=== PATIENT | male | born 1975 | race Caucasian/White ===

== ENCOUNTER 2018-02-05 08:34 | Day surgery (SDC) | payer MEDICAID, SELFPAY ==
--- NOTE | 2018-02-05 | IMM_PTH ---
PATIENT: DEMAR CUEVAS LOC: EN U#:[id number] AGE/SX: 42/M ROOM: RE02/05/[address]: Dr. Noble Burnette MD : 1975 BED: DIS: 02/05/2018 SPEC #: [id number] RECD: 02/06/18 10:33 STATUS: ALMAZ SOLE #: [id number] RADHA: 02/05/18 00:[address]: Noble Burnette DEPT: IMMUNOHISTOCHEMISTRY RECD BY: Pau Mckeon Tissues: B - Stomach, NOS Procedures: H Pylori (initial) PHYSICIAN & INSTITUTION [place] [id number] SPECIMEN INFORMATION: Tissue Source: B ? Antral biopsy Clinical Info: GERD, blood in stool Specimen Number: [id number] CPT code: 02235 METHODOLOGY: Deparaffinized sections of prefer/formalin-fixed tissue or PAP/DQ stained slides are incubated with monoclonal/polyclonal antibodies/oligonucleotide probes. Localization is made via biotin free immunoperoxidase method. Appropriate controls are performed and reacted as expected. Results on target cell population are indicated in the following table: RESULTS: ANTIBODY / CLONE RESULT Block B H Pylori (polyclonal) negative These tests were developed and their performance characteristics determined by [facility]. They may not have been cleared or approved by the [place]. Food and Drug Administration. The FDA has determined that such clearance or approval is not necessary. INTERPRETATION: B. Antral biopsy: Negative for Helicobacter pylori organisms. AM:lázaro 02/06/18
[2018-02-05 08:51] VITALS: BP 152/95; PULSE 92; RESP 14; TEMP 36.1; O2SAT 98; BMI 32.1
--- NOTE | 2018-02-05 10:31 | EGD_PTH ---
PATIENT: DEMAR CUEVAS LOC: EN U#:[id number] AGE/SX: 42/M ROOM: RE02/05/[address]: Dr. Noble Burnette MD : 1975 BED: DIS: 02/05/2018 SPEC #: [id number] RECD: 02/05/18 11:01 STATUS: ALMAZ SOLE #: [id number] RADHA: 02/05/18 10:[address]: Noble Burnette DEPT: SURGICAL PATHOLOGY RECD BY: Akhil Aguilar Tissues: A - Duodenum, NOS B - Gastric mucous membrane C - COLON BIOPSY Procedures: Trichrome (control) Special Stain Group II Surgery Specimen Level IV HEADER OPERATION: EGD and colonoscopy PRE-OP DIAGNOSIS: GERD and blood in stool TISSUE SUBMITTED: A ? Duodenal biopsy, B ? Antral biopsy for H. pylori and path, C ? Random colon biopsies MICROSCOPIC DIAGNOSIS A. Duodenum, biopsy: No pathologic diagnosis. B. Gastric antrum, biopsy: Mild chronic gastritis. C. Colon, random biopsy: Focal recent mucosal hemorrhage. No evidence of colitis. AM:lázaro 02/06/18 COMMENT B. The results of immunohistochemistry for Helicobacter pylori will be reported separately ([id number]). C. Trichrome stain with matched control does not reveal a thickened basal plate. Clinical correlation is suggested. MICROSCOPIC DESCRIPTION Slides are reviewed. GROSS DESCRIPTION A - Received in fixative is one container labeled with the patient's name and designated duodenal biopsy. The specimen consists of multiple irregular fragments of light gutierrez soft tissue that in aggregate measure 0.5 x 0.2 x 0.1 cm. The specimen is totally submitted in one cassette. B - Received in fixative is one container labeled with the patient's name and designated antral biopsy. The specimen consists of two irregular fragments of light gutierrez soft tissue that in aggregate measure 1 x 0.2 x 0.1 cm. The specimen is totally submitted in one cassette. C - Received in fixative is one container labeled with the patient's name and designated random colon biopsy. The specimen consists of multiple irregular fragments of light gutierrez soft tissue that in aggregate measure 1 x 0.5 x 0.1 cm. The specimen is totally submitted in one cassette. / ROBBY:lázaro 02/05/18 TC:5 CPT: 82069 x3, 53447
--- NOTE | 2018-02-05 10:49 | PCM.OPRPT ---
Problem List (1) Dysphagia, unspecified Status: Acute Qualifiers: Dysphagia type: unspecified Qualified Code(s): R13.10 - Dysphagia, unspecified (2) Epigastric pain Status: Acute (3) Blood per rectum Status: Acute Report of Operation Date of Procedure: 02/05/18 Pre-Operative Diagnosis: r13.10 dysphasia unspecified. r10.13 epigastric abdominal pain. k62.5 rectal bleeding Post-Operative Diagnosis: Same Surgery/Procedure Performed:: 1. Esophagogastroduodenoscopy with biopsy. 2. Colonoscopy with random colon biopsies Type of Anesthesia:: MAC Anesthesiologist: Gilels Cota Description of Procedure: Patient was brought into the endoscopy suite back of his throat was sprayed with Cetacaine spray. A bite-block was placed. He was placed in the left lateral decubitus position. He was given graded anesthesia. The scope was inserted into the back of the oropharynx and directed down through the esophagus, stomach, and into the duodenum. Operative findings: 1. Duodenum: Normal appearance no mass lesions some slight erythema in the duodenal bulb but very minimal at best biopsy for celiac sprue was obtained. 2. Stomach: normal appearance no mass lesions no ulcerations biopsy for H. pylori was obtained. There was the appearance of the there was some significant gastritis and cobblestoning minimally throughout the stomach majority of it based in the prepyloric area. #3 esophagus: Normal appearance no mass lesions no signs of esophagitis Z line was at 40 cm and it looked good. Colonoscope was inserted into the rectum and directed through the sigmoid colon, descending colon, transverse colon, ascending colon, to the cecum. Operative findings: 1. Cecum: Normal appearance no mass lesions normal ileocecal valve. 2. Ascending colon: Normal appearance no mass lesions. 3. Transverse colon: Normal appearance no mass lesions. 4. Descending colon: Normal appearance no mass lesions. 5. Sigmoid colon: Normal appearance no mass lesions. The area of the sigmoid colon did not distend as normally as the rest of the colon. There was absolutely no diverticular disease identified. 6. Rectum: Few internal hemorrhoids no mass lesions Random colon biopsies were done from the cecum all the way to the rectum. The scope was withdrawn and digital rectal exam was performed showing a smooth prostate and no masses within the anus. I will see the patient back in 1 week to discuss pathology reports
[2018-02-05 10:52] VITALS: BP 146/94; BP 152/95; PULSE 88; RESP 16; TEMP 36.1; O2SAT 95
--- NOTE | 2018-02-05 10:52 | OP.PCM_ITS ---
Problem List (1) Dysphagia, unspecified Status: Acute Qualifiers: Dysphagia type: unspecified Qualified Code(s): R13.10 - Dysphagia, unspecified (2) Epigastric pain Status: Acute (3) Blood per rectum Status: Acute Report of Operation Date of Procedure: 02/05/18 Pre-Operative Diagnosis: r13.10 dysphasia unspecified. r10.13 epigastric abdominal pain. k62.5 rectal bleeding Post-Operative Diagnosis: Same Surgery/Procedure Performed:: 1. Esophagogastroduodenoscopy with biopsy. 2. Colonoscopy with random colon biopsies Type of Anesthesia:: MAC Anesthesiologist: Gilles Cota Description of Procedure: Patient was brought into the endoscopy suite back of his throat was sprayed with Cetacaine spray. A bite-block was placed. He was placed in the left lateral decubitus position. He was given graded anesthesia. The scope was inserted into the back of the oropharynx and directed down through the esophagus , stomach, and into the duodenum. Operative findings: 1. Duodenum: Normal appearance no mass lesions some slight erythema in the duodenal bulb but very minimal at best biopsy for celiac sprue was obtained. 2. Stomach: normal appearance no mass lesions no ulcerations biopsy for H. pylori was obtained. There was the appearance of the there was some significant gastritis and cobblestoning minimally throughout the stomach majority of it based in the prepyloric area. #3 esophagus: Normal appearance no mass lesions no signs of esophagitis Z line was at 40 cm and it looked good. Colonoscope was inserted into the rectum and directed through the sigmoid colon , descending colon, transverse colon, ascending colon, to the cecum. Operative findings: 1. Cecum: Normal appearance no mass lesions normal ileocecal valve. 2. Ascending colon: Normal appearance no mass lesions. 3. Transverse colon: Normal appearance no mass lesions. 4. Descending colon: Normal appearance no mass lesions. 5. Sigmoid colon: Normal appearance no mass lesions. The area of the sigmoid colon did not distend as normally as the rest of the colon. There was absolutely no diverticular disease identified. 6. Rectum: Few internal hemorrhoids no mass lesions Random colon biopsies were done from the cecum all the way to the rectum. The scope was withdrawn and digital rectal exam was performed showing a smooth prostate and no masses within the anus. I will see the patient back in 1 week to discuss pathology reports
[2018-02-05 10:55] VITALS: BP 131/87; BP 152/95; PULSE 88; RESP 16; O2SAT 99
[2018-02-05 11:00] VITALS: BP 131/91; BP 152/95; PULSE 88; RESP 16; O2SAT 99
[2018-02-05 11:05] VITALS: BP 125/81; BP 152/95; PULSE 82; RESP 14; TEMP 36.4; O2SAT 95
[2018-02-05 11:21] VITALS: BP 152/95
== END 2018-02-05 11:23 | disposition home or self-care (01) ==
LOC: EN 08:37 → AC 08:37
PROVIDERS: Visit Provider Surgery
PROC: 0DJD8ZZ Inspection of Lower Intestinal Tract, Via Natural or Artificial Opening Endoscopic (ICD-10-PCS; CPT 45378; principal; 2018-02-05 09:45)
DX: K29.50 Unspecified chronic gastritis without bleeding (principal); R13.10 Dysphagia, unspecified; R10.13 Epigastric pain; K62.5 Hemorrhage of anus and rectum; K64.8 Other hemorrhoids; F17.200 Nicotine dependence, unspecified, uncomplicated; E78.00 Pure hypercholesterolemia, unspecified; Z86.718 Personal history of other venous thrombosis and embolism; Z86.2 Personal history of diseases of the blood and blood-forming organs and certain disorders involving the immune mechanism; Z79.1 Long term (current) use of non-steroidal anti-inflammatories (NSAID); Z79.52 Long term (current) use of systemic steroids; Z79.899 Other long term (current) drug therapy
CPT/HCPCS: 43239; 45380; 88305; 88313; 88342; J7120